=== PATIENT | male | born 1975 | race Caucasian/White ===

== ENCOUNTER 2019-01-19 09:47 | Emergency (ER) | payer OTHER ==
[~2019-01-19] VITALS: Ht 175.3 cm; Wt 101.2 kg
[~2019-01-19 09:47] MED LIST: MEDROL4 MG PO; NORFLEX100 MG PO; ORPH100T PO; PERCOCET 5/3251 TAB PO; TRAMADOL HCL50 MG PO
[2019-01-20] MEDS ORDERED: MOTRIN IB200 MG (06:33)
[2019-01-20] MEDS ORDERED: NEURONTIN300 MG (06:33)
== END 2019-01-19 14:12 | disposition home or self-care (01) ==
LOC: ER 09:47
DX: M54.32 Sciatica, left side (principal)

== ENCOUNTER 2019-01-20 04:15 | Emergency (ER) | payer OTHER ==
[~2019-01-20] VITALS: Ht 175.3 cm; Wt 101.2 kg
[2019-01-20] MEDS ORDERED: NEURONTIN300 MG (06:33)
[2019-01-20] MEDS ORDERED: MOTRIN IB200 MG (06:33)
== END 2019-01-20 15:01 | disposition home or self-care (01) ==
LOC: ER 04:15
DX: M54.5 Low back pain (principal)